=== PATIENT | male | born 1940 | race Caucasian/White ===

== ENCOUNTER → 2016-10-06 | Outpatient (CLI) | payer OTHER ==
--- NOTE | ~2016-10-06 | CT114 ---
[facility] A Service of [facility] & [facility] RADIOLOGY TEXT RESULTS PATIENT: [facility] DEAN [facility] UN[facility] #: [id number] AGE: [address]: Jaden Davidson MD SEX: M ORDER DR: [id number] [facility] [address] [place], [place] [address] [id number] O MR#: [id number] [facility] #: [id number] NAME: YANELIS DEAN : 1940 SEX: M STUDY DATE/TIME: 10/06/2016 10:09 UNIT: [facility] ROOM: STUDY DESCRIPTION: CT Soft Tissue Neck W Cont Attending Physician: Jaden Davidson M.D. Referring Physician: Jaden Davidson M.D. Ordering Physician: Jaden Davidson M.D. Primary Care Physician: Jaden Davidson M.D. MEDICAL IMAGING REPORT This report is preliminary unless electronic signature is present EXAM CTA neck with contrast HISTORY Right paratracheal mass seen on MRI. The mass is nonpalpable. . TECHNIQUE This CT exam was performed with one or more of the following radiation dose reduction techniques: automatic exposure control, adjustment of mA and/or kV according to patient size, and iterative reconstruction. Axial imaging was obtained from the skull base to the upper mediastinum with contrast. 100 mL of Isovue was used. FINDINGS The skull base, parapharyngeal spaces and pharyngeal mucosal surfaces have a normal appearance. The parotid and submandibular glands are symmetric. No cervical adenopathy is seen. Soft tissue planes in the hypopharynx and larynx are preserved. The trachea is widely patent. The thyroid is enlarged. There are bilateral multiple thyroid nodules. The abnormality noted on MRI represents a nodule deep in the right thyroid lobe adjacent to the esophagus. It measures 12 x 23 mm. Additionally there is a 16 mm nodule at the lower pole more superficially on the right. The left thyroid lobe contains a calcification; and just above this, there is a nodule deep in the left thyroid lobe measuring 11 x 16 mm. No adjacent adenopathy is seen. The upper mediastinum is unremarkable. The lung apices are clear. IMPRESSION Mild thyromegaly with bilateral thyroid nodules. Consider further evaluation with ultrasound and correlation with thyroid function tests if STS. [facility] A Service of [facility] & [facility] RADIOLOGY TEXT RESULTS PATIENT: YANELIS DEAN LOCATION: [facility] : 42 UNIT #: [id number] AGE: [address]: Jaden Davidson MD SEX: M ORDER DR: this has not been evaluated in the past. Otherwise negative neck CT. Dictated by... Charan Truong M.D. THIS IS AN ELECTRONICALLY VERIFIED REPORT Charan Truong M.D. at 10/07/2016 4:41 PM GENNA/uma TD: 10/07/2016 12:17 JOB #: [id number] MEDICAL IMAGING REPORT COPY
[2016-10-06 10:50] LABS: POC - GFR >60.0 mL/min (>60)
== END | disposition home or self-care (01) ==
LOC: CCAT 09:33
PROVIDERS: Family Medicine
DX: R22.1 Localized swelling, mass and lump, neck (principal); D49.1 Neoplasm of unspecified behavior of respiratory system; E01.0 Iodine-deficiency related diffuse (endemic) goiter
CPT/HCPCS: 70491; 82565; Q9967

== ENCOUNTER → 2016-10-14 | Outpatient (CLI) | payer OTHER ==
--- NOTE | ~2016-10-14 | US128 ---
[id number] [facility] [address] [place], [place] [address] [id number] O MR#: [id number] [facility] #: [id number] NAME: YANELIS DEAN : 1940 SEX: M STUDY DATE/TIME: 10/14/2016 13:13 UNIT: [facility] ROOM: STUDY DESCRIPTION: US Thyroid Attending Physician: Jaden Davidson M.D. Ordering Physician: Jaden Davidson M.D. Primary Care Physician: Jaden Davidson M.D. MEDICAL IMAGING REPORT This report is preliminary unless electronic signature is present EXAM Thyroid ultrasound. INDICATIONS Abnormal CT of the neck soft tissue which was performed on October 06, 2016. This is a followup study. TECHNIQUE Hoskins-scale and color Doppler sonographic images were obtained through the patient's thyroid gland. FINDINGS Right lobe of the thyroid gland is enlarged measuring up to 5.1 x 2.2 x 2.2 cm, left lobe measures 2.4 x 1.8 x 4.6 cm. Isthmus measures about 3 mm in thickness. This patient has multiple thyroid nodules and overall thyroid parenchyma is very heterogeneous. Single largest nodule within the right lobe of the thyroid gland is located posteriorly. This nodule is measured at up to 1.4 x 2.1 x 1.4 cm. There is a second nodule, which I think is just superior to it, which measures up to 1.4 x 1.9 x 1.1 cm. 2 additional nodules are identified within the right lobe of the thyroid gland. There is a mildly hypoechoic nodule measuring up to 1.1 x 0.7 x 1.0 cm. Within the left lobe of the thyroid gland, curriculum assistant principal has measured 3 discrete nodules; largest is a mixed, [id number] nodule measuring up to 1.2 x 1.4 x 1.2 cm. There is also a heterogeneous hypoechoic nodule measuring up to 1.1 x 0.7 x 1.4 cm and a heterogeneous nodule located posteriorly within the left lobe of the thyroid gland measuring 0.8 x 1.2 x 1.0 cm. IMPRESSION 1. This patient has 2 nodules within the right lobe of the thyroid gland which meet size criteria for percutaneous sampling and this is recommended. While none of the nodules on the left meet size criteria for percutaneous sampling, there is a nodule with somewhat irregular borders and hypervascularity measuring up to 1.1 x 0.7 x 1.4 cm, that could certainly be considered for FNA at that time. At a minimum, short-term sonographic followup in 6 months is recommended for surveillance of all nodules. Dictated by... Barbara Hamilton M.D. THIS IS AN ELECTRONICALLY VERIFIED REPORT Barbara Hamilton M.D. at 10/15/2016 4:19 PM AFF/psc TD: 10/14/2016 20:57 JOB #: [id number] MEDICAL IMAGING REPORT COPY
== END | disposition home or self-care (01) ==
LOC: CGUS 12:43
DX: E04.2 Nontoxic multinodular goiter (principal)
CPT/HCPCS: 76536